=== PATIENT | female | born 1985 | race Caucasian/White ===

== ENCOUNTER 2019-12-02 09:12 | Emergency (ER) | payer OTHER, SELFPAY ==
[2019-12-02 09:22] VITALS: BP 139/81; PULSE 73; RESP 20; TEMP 36.6; O2SAT 100
--- NOTE | 2019-12-02 09:24 | ED.SKABFB ---
HPI - Skin/Abscess/Foreign Bdy General Chief complaint: Skin/Abscess/Foreign Body Stated complaint: possible abcess on chest Time Seen by Provider: 12/02/19 09:24 Source: patient and RN notes reviewed History of Present Illness HPI narrative: Patient is a 34-year-old female presents the urgent care with complaints of an abscess on the chest. Patient states that she has had this before approximately 4 to 6 years ago. Patient states that it started approximately 3 days ago and has increased in size. Patient denies any drainage, fever, nausea, vomiting. Patient states she does have an appointment with her [facility]AL [facility] on Wednesday who is drained it in the past. No other acute complaints. No acute distress noted. Patient had a plan of care. Related Data Allergies Allergy/AdvReac Type Severity Reaction Status Date / Time Sulfa (Sulfonamide Allergy Mild nausea/vomi Verified 12/02/19 09:38 Antibiotics) ting Review of Systems Review of Systems: Narrative: CONSTITUTIONAL: Denies fever, chills, or sweats. EYES: Denies visual changes, redness, or discharge. ENT: Denies rhinorrhea, congestion, sore throat, or otalgia. CARDIOVASCULAR: Denies chest pain, palpitations, or edema. RESPIRATORY: Denies cough or dyspnea. GASTROINTESTINAL: Denies abdominal pain, nausea, vomiting, or diarrhea. GENITOURINARY: Denies dysuria or hematuria. SKIN: Reports of an abscess between the breasts MUSCULOSKELETAL: Denies back pain, joint pain, or myalgia. NEUROLOGIC: Denies headache, numbness, or weakness. All other systems reviewed are negative, except as documented in HPI. PMFSH Comments At the time of my signature, I reviewed and agree with the nursing past medical, surgical, social, and family history. There is no relevant family history pertinent to the patient complaint. Exam Narrative: Exam Narrative: GENERAL: This is a well-nourished, well-developed patient, in no apparent distress. HEAD: normocephalic, atraumatic. EYES: PERRL. Sclera clear/white. Vision is grossly intact. EARS: External ears normal NOSE: External nose normal with no obvious nasal discharge THROAT: Mucous membranes moist NECK: Neck supple, non-tender without lymphadenopathy, masses or thyromegaly. CARDIOVASCULAR: Regular rate and rhythm SKIN: 1 x 1.5 cm abscess between the breasts without drainage; Slightly fluctuant abscess. Warm, intact with no suspicious lesions or rash, good texture and turgor. NEURO: awake, alert, and oriented to person, place and time. There were no obvious focal neurologic abnormalities. EXTREMITIES: No clubbing, cyanosis, or edema. Course Vital Signs Vital signs: Vital Signs Temperature 97.9 F 12/02/19 09:22 Pulse Rate 73 12/02/19 09:22 Respiratory Rate 20 12/02/19 09:22 Blood Pressure 139/81 12/02/19 09:22 Pulse Oximetry 100 12/02/19 09:22 Temperature 97.9 F 12/02/19 09:22 Pulse Rate 73 12/02/19 09:22 Respiratory Rate 20 12/02/19 09:22 Blood Pressure 139/81 12/02/19 09:22 Pulse Oximetry 100 12/02/19 09:22 Reviewed MDM - Skin/Abscess/Foreign Bdy MDM Narrative Medical decision making narrative: Advised the patient to use warm compress to the area. Keep appointment with [facility] on Wednesday in case abscess needs to be opened. Start and complete antibiotic regimen as prescribed. Do not take medication on an empty stomach and avoid dairy products when taking the pill. Drink a full glass of water. Use Zofran as needed for nausea. If the area opens, make sure to keep it very clean and use home supply of Bactroban cream as directed. Follow-up with [facility] as scheduled on Wednesday. Differential Diagnosis Differential diagnosis: Likely urticaria, cellulitis, eczema, impetigo and contact dermatitis Critical Care Time Critical Care Time Critical Care Time: No Discharge Plan Discharge Clinical Impression: Abscess of skin or subcutaneous tissue Qualifiers: Site of cutaneous abscess: unspecified site Qualified Code(s): L02.91 - Cutaneo
== END 2019-12-02 09:45 | disposition home or self-care (01) ==
PROVIDERS: Emergency Provider Nurse Practitioner Family; PCP Internal Medicine
DX: L02.213 Cutaneous abscess of chest wall (principal)
CPT/HCPCS: 99203; G0463